=== PATIENT | male | born 1960 | race Two or more races ===

== ENCOUNTER 2024-09-25 06:06 | Day surgery (SDC) | payer MEDICAID ==
[2024-09-24 12:00] LABS: Hematocrit 46.3 % (41.0-53.0); Hemoglobin 16.0 g/dL (13.5-17.5); Mean Corpuscular Hemoglobin 30.8 pg (28.0-32.0); Mean Corpuscular Volume 88.9 fL (80.0-100.0); Nucleated Red Blood Cells % 0.1 %
[2024-09-24 12:13] LABS: Urine Protein, UAD Negative (Negative)
[2024-09-24 12:21] LABS: Alanine Aminotransferase 15 U/L (7-40); Anion Gap 8 (5-15); BUN/Creatinine Ratio 8.7 (10.0-20.0); Bilirubin, Total 0.9 mg/dL (0.2-1.0); Blood Urea Nitrogen 9 mg/dL (9-23); Calcium 10.3 mg/dL (8.7-10.4); Carbon Dioxide 28 mmol/L (20-31); Chloride 106 mmol/L (98-107); Glucose 97 mg/dL (74-106); Potassium 4.6 mmol/L (3.5-5.1); Sodium 142 mmol/L (136-145); Total Protein 6.8 g/dL (5.7-8.2)
[2024-09-24 12:22] LABS: Albumin 4.8 g/dL (3.2-4.8); Alkaline Phosphatase 42 U/L (46-116)
[2024-09-24 12:26] LABS: INR 0.97 (0.9-1.15); Partial Thromboplastin Time 27.2 SEC (24.5-34.5); Prothrombin Time 10.3 sec (9.3-11.8)
[~2024-09-25] VITALS: Ht 188 cm; Wt 97.5 kg
[2024-09-25] MEDS ORDERED: GLYCOPYRROLATE 0.2 MG/ML 1ML VIAL ONE (07:33)
[2024-09-25] MEDS ORDERED: ONDANSETRON HCL 4 MG/2 ML VIAL ONE (07:33)
[2024-09-25] MEDS ORDERED: KETAMINE 50mg/ML 1ml syringe ONE (07:33)
[2024-09-25] MEDS ORDERED: PROPOFOL 10 MG/ML 20 ML IV ONE (07:33)
[2024-09-25] MEDS ORDERED: MIDAZOLAM HCL 2MG/2ML 2ml VIAL (1mg/ml) ONE (07:33)
[2024-09-25] MEDS: ceFAZolin 2 GM/D5W50ml 50 ML IV ONE (09:39)
[2024-09-25] MEDS: BUPIVACAINE 0.5% P/F INJ 10 ML VIAL ONE (09:42)
[2024-09-25] MEDS: LIDOCAINE W/ EPINEPHRINE 1% 20ML VIAL ONE (09:42)
[2024-09-25] MEDS: POVIDONE IODINE 10 % TOPICAL OINT 30GM TOP ONE (09:58)
[2024-09-25 10:01] VITALS: RESP 17; TEMP 97.3; O2SAT 97
[2024-09-25] MEDS ORDERED: HYDROmorphone HCL 2 MG/ML VL/or syr IV PRN (10:15)
[2024-09-25 10:20] VITALS: BP 128/77; PULSE 77; RESP 10; O2SAT 98
--- NOTE | 2024-09-25 10:35 | DVHOP ---
DATE OF SURGERY: 09/25/2024 PREOPERATIVE DIAGNOSIS: Left supraclavicular mass. POSTOPERATIVE DIAGNOSIS: Left supraclavicular mass. SURGEON: Dat Vieira MD ANESTHESIA: Local with IV sedation. ANESTHESIOLOGIST: Dr. Reno. PROCEDURE: With the skin prepped and draped and infiltrated with 0.25% Marcaine and 0.5% Xylocaine, an incision was made over the visible palpable mass in the left supraclavicular fossa, subcutaneous tissues, and muscle fibers divided with electrocautery. The lump appeared to be a metastatic lymph node, possibly a melanoma due to its discoloration. The tumor was encircled and resected with hemostasis obtained with electrocautery. The wound was then irrigated. After submission of the lump for histopathologic examination, the wound was closed using 2-0 nylon suture. The patient remained stable throughout the procedure and left the operating room following accurate needle and sponge counts. His family was thoroughly informed in the waiting room. MD TD Gillespie/JAGDISH TID: [id number] RECEIPT: [id number]
== END 2024-09-25 10:41 | disposition home or self-care (01) ==
LOC: SUR 06:06
PROVIDERS: ATTEND Surgery
DX: R59.0 Localized enlarged lymph nodes (principal); C77.0 Secondary and unspecified malignant neoplasm of lymph nodes of head, face and neck; I10 Essential (primary) hypertension; M51.34 Other intervertebral disc degeneration, thoracic region; M51.369 Other intervertebral disc degeneration, lumbar region without mention of lumbar back pain or lower extremity pain; Z90.89 Acquired absence of other organs; Z98.890 Other specified postprocedural states; Z88.5 Allergy status to narcotic agent
CPT/HCPCS: 36415; 38525; 80053; 81001; 85025; 85610; 85730; 88305; 88342; J0690; J2250; J2405; J2704; J3490